=== PATIENT | female | born 1985 | race African-American/Black ===

== ENCOUNTER 2021-08-11 14:59 | Emergency (ER) ==
[2021-08-11 15:25] LABS: #Eosinphils 0.4 thou/uL (0.0-0.7); #Lymphocytes 2.2 thou/uL (1.20-3.40); #Monocytes 0.6 thou/uL (0.11-0.59); #Neutrophils 2.4 thou/uL (1.40-6.50); %Basophils 0.7 % (0.0-1.0); %Eosinophils 6.6 % (0.0-10.0); %Monocytes 10.8 % (0.0-10.0); %Neutrophils 42.9 % (42.0-75.0); Hemoglobin 13.2 g/dL (12.0-16.0); Mean Corpuscular HGB CONC 32.2 g/dL (32.0-36.0); Mean Corpuscular Hemoglobin 30.3 pg (27.0-31.0); Mean Platelet Volume 8.1 fL (7.4-10.4); Platelet Count 265 thou/uL (130-400); RBC Distribution Width 11.2 % (11.5-14.5); Red Blood Cell (RBC) Count 4.36 mill/uL (4.20-5.40); White Blood Cell (WBC) Count 5.6 thou/uL (4.8-10.8)
[2021-08-11 15:36] LABS: BHCG - Serum Negative (NEGATIVE); Pregs Control Background? CLEAR/WHITE (CLR/WHITE); Pregs Control Bar Appear? YES (CONTROL BAR)
[2021-08-11 15:55] LABS: Acetaminophen Less than 10.0 mcg/mL (10.0-30.0); Alcohol Less than 10 mg/dL (Less than 10); Salicylate Less than 8.0 mg/dL (15.0-30.0)
[2021-08-11 15:56] LABS: ALT (SGPT) 9 U/L (8-55); AST (SGOT) 16 U/L (5-34); Alkaline Phosphatase 74 U/L (40-110); Anion Gap 11 mmol/L (10-20); BUN (Urea Nitrogen) 9 mg/dL (7.0-18.7); Calc. Creatinine Clearance 0 mL/min (70-130); Calcium 9.8 mg/dL (7.8-10.44); Carbon Dioxide 29 mmol/L (22-29); Chloride 103 mmol/L (98-107); Estimated GFR 88; Globulin 3.6 g/dL (2.4-3.5); Glucose 77 mg/dL (70-105); Potassium 4.7 mmol/L (3.5-5.1); Protein, Total 7.6 g/dL (6.0-8.3); Sodium 138 mmol/L (136-145)
[2021-08-11] MEDS ORDERED: Ondansetron ODT 4 MG TAB ONE (18:38)
== END 2021-08-11 18:45 | disposition home or self-care (01) ==
LOC: ERS 14:59
DX: R11.2 Nausea with vomiting, unspecified (principal); F11.10 Opioid abuse, uncomplicated
CPT/HCPCS: 80053; 80307; 84703; 85025; 94760; Q0162

== ENCOUNTER 2021-08-13 08:50 | Emergency (ER) ==
[2021-08-13] MEDS ORDERED: Ondansetron PF 4 MG/2 ML Vial ONE (10:05)
[2021-08-13] MEDS ORDERED: Ondansetron ODT 4 MG TAB ONE (10:06)
== END 2021-08-13 10:15 | disposition home or self-care (01) ==
LOC: ERS 08:50
DX: F11.23 Opioid dependence with withdrawal (principal); R11.2 Nausea with vomiting, unspecified
CPT/HCPCS: 99283; J2405; Q0162

== ENCOUNTER 2021-08-15 07:40 | Emergency (ER) | payer SELFPAY | END 2021-08-15 09:00 | disposition home or self-care (01) | LOC: ERS 07:40 | DX: F11.23 Opioid dependence with withdrawal (principal) | CPT/HCPCS: 99284 ==

== ENCOUNTER 2021-08-18 09:01 | Emergency (ER) | payer SELFPAY ==
[2021-08-18 09:30] LABS: Bilirubin Negative (Negative); Blood, Urine Negative (Negative); Clarity Clear (Clear); Glucose, Urine (Dipstick) Normal (Negative); Ketone, Urine Negative (Negative); Leukocyte Negative Leu/uL (Negative); Nitrite Negative (Negative); Protein, Urine (Dipstick) Negative (Neg-Trace); Specific Gravity, Urine 1.016 (1.002-1.036); Urobilinogen Normal mg/dL (Less than 2)
[2021-08-18 09:44] LABS: Pregnancy Test - Urine (BHCG) Negative (Negative); Specific Gravity 1.016 (1.002-1.036)
[2021-08-18 09:51] LABS: Pregu Control Background? CLEAR/WHITE (CLR/WHITE); Pregu Control Bar Appear? YES (CONTROL BAR)
[2021-08-20 00:02] LABS: Chlamydia by PCR Not Detected (NotDetected); GC by PCR Not Detected (NotDetected)
== END 2021-08-18 11:15 | disposition home or self-care (01) ==
LOC: ERS 09:01
DX: N89.8 Other specified noninflammatory disorders of vagina (principal); M25.562 Pain in left knee; M25.561 Pain in right knee; Z87.891 Personal history of nicotine dependence
CPT/HCPCS: 81003; 81025; 87480; 87491; 87510; 87591; 87660; 99283

== ENCOUNTER 2021-08-29 20:40 | Emergency (ER) | payer SELFPAY | END 2021-08-29 21:00 | disposition home or self-care (01) | LOC: ERS 20:40 | DX: K02.9 Dental caries, unspecified (principal); Z87.891 Personal history of nicotine dependence | CPT/HCPCS: 99282 ==